=== PATIENT | male | born 1975 | race Caucasian/White ===

== ENCOUNTER 2018-11-12 09:50 | Emergency (ER) | payer MEDICAID ==
--- NOTE | 2018-11-12 10:07 | EDM.PDOC ---
ED HPI GENERAL MEDICAL PROBLEM - General Chief Complaint: Lower Extremity Injury/Pain Stated Complaint: KNEE INJURY [id number] Time Seen by Provider: 11/12/18 10:07 Source of Information: Reports: Patient, RN, RN Notes Reviewed History Limitations: Reports: No Limitations - History of Present Illness INITIAL COMMENTS - FREE TEXT/NARRATIVE: Pt to ER with c/o right knee pain. He states he was getting out of his pickup last night when his foot caught in the running board, fell to the ground, and twisted the right knee. He states he has dislocated one of the knees at one point. Points to the medial right knee for pain. States he is able to bear weight but very painful. Onset: Sudden Location: Reports: Lower Extremity, Right Right Knee Pain Score (Numeric/FACES): 10 - Related Data Allergies Allergy/AdvReac Type Severity Reaction Status Date / Time amlodipine Allergy Cannot Verified 11/12/18 10:04 Remember cephalexin [From Keflex] Allergy Cannot Verified 11/12/18 10:04 Remember Home Meds: Home Meds Hydrochlorothiazide 25 mg PO DAILY 12/15/14 [History] Lisinopril 40 mg PO DAILY 12/15/14 [History] Gabapentin 600 mg PO TID 12/24/15 [History] Pantoprazole Sodium [Protonix] 20 mg PO DAILY 12/24/15 [History] Past Medical History Cardiovascular History: Reports: Hypertension Other Cardiovascular History: past chest pain, set up for stress test December 25, 2014 Gastrointestinal History: Reports: GERD Musculoskeletal History: Reports: Back Pain, Chronic Review of Systems - Review of Systems Review Of Systems: ROS reveals no pertinent complaints other than HPI. ED EXAM, GENERAL - Physical Exam Exam: See Below Exam Limited By: No Limitations General Appearance: Alert, WD/WN, No Apparent Distress Eye Exam: Bilateral Eye: EOMI, Normal Inspection Ears: Normal External Exam, Hearing Grossly Normal Nose: Normal Inspection Throat/Mouth: Normal Inspection Head: Atraumatic, Normocephalic Neck: Normal Inspection, Supple, Non-Tender, Full Range of Motion Respiratory/Chest: No Respiratory Distress, Lungs Clear, Normal Breath Sounds, No Accessory Muscle Use, Chest Non-Tender Cardiovascular: Normal Peripheral Pulses, Regular Rate, Rhythm, No Edema, No Gallop, No JVD, No Murmur, No Rub Peripheral Pulses: 2+: Radial (L), Radial (R) GI/Abdominal: Normal Bowel Sounds, Soft, Non-Tender (Male) Exam: Deferred Rectal (Males) Exam: Deferred Back Exam: Normal Inspection, Full Range of Motion, NT Extremities: No Pedal Edema, Normal Capillary Refill, Joint Swelling (right knee ), Leg Pain (right knee), Limited Range of Motion (right knee) Neurological: Alert, Oriented, CN II-XII Intact, Normal Cognition, Normal Gait, Normal Reflexes, No Motor/Sensory Deficits Psychiatric: Normal Affect, Normal Mood Skin Exam: Warm, Dry, Intact, Normal Color, No Rash Lymphatic: No Adenopathy ED TRAUMA EXTREMITY PROCEDURES - Splinting Right Lower Extremity Splint Site: right knee Pre-Procedure NV Status: Normal Post-Procedure NV Status: Normal Splint Material: Velcro Splint Design: Knee Immobilizer Applied & Form Fitted By: Nurse Provider Post-Splint Application NV Check: NV Status Normal, Good Position Complications: No Course - Vital Signs Last Recorded V/S: Last Vital Signs Temp 96.9 F 11/12/18 10:05 Pulse 86 11/12/18 10:05 Resp 16 11/12/18 10:05 BP 140/70 11/12/18 10:05 Pulse Ox 99 11/12/18 10:05 - Radiology Interpretation Free Text/Narrative:: Right knee xray: Large bone spur arising off the insertion point of the quadriceps tendon dorsal aspect of the patella Tiny sliver-like (?needle, wood sliver?) foreign body in the subcu soft tissues adjacent lateral condyle, distal right femur Homogeneous normal bone density and symmetric normal knee joint spacing. No right knee joint effusion, pathologic skeletal lesion, fracture, dislocation , or radiopaque loose joint body See rad report Departure - Departure Time of Disposition: 11:44 Disposition: Home, Self-Care 01 Condition: Fair Clinical Impression: Sprain of knee - Discharge Information *PRESCRIPTION DRUG MONITORING PROGRAM REVIEWED*: No *COPY OF PRESCRIPTION DRUG MONITORING REPORT IN PATIENT MICHAEL: No Instructions: Crutch Use, Adult, [id number], Muscle Strain, [id number], Cast or Splint Care, Adult, [id number], How to Use a Knee Immobilizer, Easy-to -Read Forms: ED Department Discharge Additional Instructions: May use Tylenol and/or Ibuprofen as directed for pain Use knee immobilizer until seen for MRI Elevate and ice the knee as tolerated Bear minimal weight on the right leg Use crutches for assistance. Follow up with your primary care facility for MRI if no improvement
[2018-11-12 10:13] VITALS: BP 140/70
--- NOTE | 2018-11-12 11:38 | CR ---
Clinical history: 43-year-old male right knee pain (injury). Interpretation: Large bone spur arising off the insertion point of the quadriceps tendon dorsal aspect of the patella. Tiny sliver-like (needle? Wood sliver?) foreign body in the subcutaneous soft tissues adjacent lateral condyle, distal right femur. Homogeneous normal bone density and symmetric normal knee joint spacing. *No right knee joint effusion, pathologic skeletal lesion, fracture, dislocation or radiopaque loose joint body.
== END 2018-11-12 11:52 | disposition home or self-care (01) ==
LOC: DL.ED 09:50
DX: S83.91XA Sprain of unspecified site of right knee, initial encounter (principal); Z88.1 Allergy status to other antibiotic agents; Z88.8 Allergy status to other drugs, medicaments and biological substances; Z79.899 Other long term (current) drug therapy; I10 Essential (primary) hypertension; W23.0XXA Caught, crushed, jammed, or pinched between moving objects, initial encounter
CPT/HCPCS: 73562-RT; 99283-25

== ENCOUNTER 2020-05-13 18:19 | Emergency (ER) | payer MEDICAID ==
[2020-05-13 18:43] VITALS: BP 137/81; PULSE 100
[2020-05-13] MEDS ORDERED: Clindamycin HCl 150 MG Cap PO ONE (18:44)
[2020-05-13] MEDS ORDERED: Doxycycline Monohydrate 100 MG Cap PO ONE (18:45)
--- NOTE | 2020-05-13 18:53 | EDM.PDOC ---
ED HPI GENERAL MEDICAL PROBLEM - General Chief Complaint: Skin Complaint Stated Complaint: INFECTION IN LEFT LEG, SWOLLEN Time Seen by Provider: 05/13/20 18:48 Source of Information: Reports: Patient, RN, RN Notes Reviewed History Limitations: Reports: No Limitations - History of Present Illness INITIAL COMMENTS - FREE TEXT/NARRATIVE: Patient presents to the ED via personal vehicle with complaints of left lower extremity pain. He states he is unaware of how he sustained the injury, but noticed a "blood blister" to his anterior gross about two days ago. 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 He reports noting erythema, heat, and drainage to the area this morning which has slowly increased as the day progressed. He denies loss of motor function or sensory to the area. He has not taken any medication for this pain. Left Knee Pain Score (Numeric/FACES): 6 - Related Data Allergies Allergy/AdvReac Type Severity Reaction Status Date / Time amlodipine Allergy Cannot Verified 11/12/18 10:04 Remember cephalexin [From Keflex] Allergy Cannot Verified 11/12/18 10:04 Remember Home Meds: Home Meds Hydrochlorothiazide 25 mg PO DAILY 12/15/14 [History] Lisinopril 40 mg PO DAILY 12/15/14 [History] Gabapentin 600 mg PO TID 12/24/15 [History] Pantoprazole Sodium [Protonix] 20 mg PO DAILY 12/24/15 [History] Past Medical History Cardiovascular History: Reports: Hypertension Other Cardiovascular History: past chest pain, set up for stress test December 25, 2014 Gastrointestinal History: Reports: GERD Musculoskeletal History: Reports: Back Pain, Chronic Social & Family History - Caffeine Use Caffeine Use: Reports: Soda ED ROS GENERAL - Review of Systems Review Of Systems: Comprehensive ROS is negative, except as noted in HPI. ED EXAM, SKIN/RASH Exam: See Below Exam Limited By: No Limitations General Appearance: Alert, WD/WN, No Apparent Distress Extremities: Pedal Edema, Leg Pain (To left anterior gross), Redness Skin: Erythema, Wound/Incision (Unlanced blood blister (2cm x 2cm) to anterior gross, below knee) Location, Skin: Lower Extremity, Left Characteristics: Erythematous Associated features: Warmth, Tenderness, Swelling, Inflammation, Weeping. No: Induration, Scaling Course - Vital Signs Last Recorded V/S: Last Vital Signs Temp 99.2 F 05/13/20 18:38 Pulse 100 05/13/20 18:38 Resp 18 05/13/20 18:38 BP 137/81 05/13/20 18:38 Pulse Ox 100 05/13/20 18:38 - Orders/Labs/Meds Meds: Medications Discontinued Medications Generic Name Dose Route Start Last Admin Trade Name Robson PRN Reason Stop Dose Admin Clindamycin HCl 300 mg 05/13/20 18:44 Cleocin PO 05/13/20 18:45 ONETIME ONE Doxycycline Monohydrate 100 mg 05/13/20 18:45 Doxycycline Monohydrate PO 05/13/20 18:46 ONETIME ONE - Re-Assessments/Exams Free Text/Narrative Re-Assessment/Exam: 05/13/20 18:50 Will administer PO Clindamycin and Doxycycline here and discharge with a pres cription. Departure - Departure Time of Disposition: 18:55 Disposition: Home, Self-Care 01 Condition: Good Clinical Impression: Cellulitis Qualifiers: Site of cellulitis: extremity Site of cellulitis of extremity: lower extremity Laterality: left Qualified Code(s): L03.116 - Cellulitis of left lower limb - Discharge Information *PRESCRIPTION DRUG MONITORING PROGRAM REVIEWED*: Not Applicable *COPY OF PRESCRIPTION DRUG MONITORING REPORT IN PATIENT MICHAEL: Not Applicable Additional Instructions: Rx: Clindamycin Rx: Doxycycline Take all antibiotics until gone. Follow up with primary care provider regarding wound and cellulitis in two weeks for skin check. Use ice to affected area for comfort. Alternate Tylenol and Motrin for pain alleviation. Sepsis Event Note (ED) - Evaluation Sepsis Screening Result: No Definite Risk - Focused Exam Vital Signs: Vital Signs Temp Pulse Resp BP Pulse Ox 05/13/20 18:38 99.2 F 100 18 137/81 100
== END 2020-05-13 19:05 | disposition home or self-care (01) ==
LOC: DL.ED 18:19
DX: L03.116 Cellulitis of left lower limb (principal); I10 Essential (primary) hypertension; K21.9 Gastro-esophageal reflux disease without esophagitis; Z88.8 Allergy status to other drugs, medicaments and biological substances; Z88.1 Allergy status to other antibiotic agents; Z79.899 Other long term (current) drug therapy
CPT/HCPCS: 99283; A9270

== ENCOUNTER 2025-05-20 22:34 | Emergency (ER) | payer MEDICAID, MEDICARE ==
[2025-05-20 23:00] LABS: BASOPHILS PERCENT AUTO 0.4 % (0.0-1.0); EOSINOPHILS PERCENT AUTO 2.8 % (1.0-3.0); LYMPHOCYTES PERCENT AUTO 33.1 % (20.5-50.1); MONOCYTES PERCENT AUTO 9.8 % (2-8); NEUTROPHILS PERCENT AUTO 53.9 % (42.2-75.2); PLATELET COUNT,PLT 256 10^3/uL (150-450); RED BLOOD CELL COUNT 5.04 10^6/uL (4.6-6.2); WHITE BLOOD CELL COUNT,WBC 9.5 10^3/uL (5.0-10.0)
[2025-05-20 23:22] LABS: A/G RATIO 1.0; ALANINE AMINOTRANSFERASE,ALT 46.0 U/L (16-63); ASPARTATE AMNIOTRANSFERASE,AST 31.0 U/L (15-37); BILIRUBIN TOTAL 0.3 mg/dL (0.2-1.0); BLOOD UREA NITROGEN,BUN 26.0 mg/dL (7-18); CARBON DIOXIDE,CO2 29.0 mmol/L (21-32); CHLORIDE,CL 101.0 mmol/L (98-107); CREATININE 1.73 mg/dL (0.70-1.30); EST CRCL DRUG DOSING (CG) 55.62 mL/min; GLUCOSE RANDOM 220.0 mg/dL (70-99); POTASSIUM,K 4.0 mmol/L (3.5-5.1); PROTEIN TOTAL,TP 7.1 g/dL (6.4-8.2); SODIUM,NA 139.0 mmol/L (136-145)
[2025-05-20 23:23] LABS: ESTIMATED GFR 48.0 mL/min (>=60)
[2025-05-20 23:29] LABS: INR 1.0 (0.9-1.2); PTT,PARTIAL THROMBOPLSTIN TIME 25.1 SEC (22.0-34.0)
[2025-05-20 23:32] LABS: D-DIMER QUANTITATIVE < 100 ng/mL (0-400)
[2025-05-20] MEDS: Lactated Ringers 1,000 ML IV ONE (23:41)
[2025-05-21] MEDS: Lactated Ringers 1,000 ML IV ONE (01:36)
[2025-05-21 02:03] LABS: APPEARANCE,URINE CLEAR (CLEAR); GLUCOSE,URINE 100 (NEGATIVE); OCCULT BLOOD,URINE TRACE-INTACT (NEGATIVE)
[2025-05-21 02:08] LABS: AMPHETAMINES,URINE NEGATIVE (NEGATIVE); BARBITURATES,URINE NEGATIVE (NEGATIVE); MDMA (ECSTASY), URINE NEGATIVE (NEGATIVE); METHAMPHETAMINES,URINE NEGATIVE (NEGATIVE); OPIATES,URINE NEGATIVE (NEGATIVE); OXYCODONE,URINE NEGATIVE (NEGATIVE); PHENCYCLIDINE,URINE NEGATIVE (NEGATIVE); TCA,URINE NEGATIVE (NEGATIVE)
[2025-05-21 02:44] VITALS: BP 138/100; PULSE 94
== END 2025-05-21 02:47 | disposition home or self-care (01) ==
LOC: DL.ED 22:34
DX: N18.31 Chronic kidney disease, stage 3a (principal); I10 Essential (primary) hypertension; Z88.8 Allergy status to other drugs, medicaments and biological substances; Z79.899 Other long term (current) drug therapy
CPT/HCPCS: 36415; 71045; 80053; 80305; 81001; 83735; 84484; 85025; 85379; 85610; 85730; 93005; 96360; 96361; 99285; J7120; 93010; 99284